=== PATIENT | male | born 1975 | race Hispanic/Latino ===

== ENCOUNTER 2018-09-26 11:09 | Emergency (ER) | payer BC ==
[2018-09-26 11:10] VITALS: BMI 24.0
[2018-09-26 11:32] VITALS: BP 156/95; PULSE 66; RESP 19; TEMP 98.5; O2SAT 97
[2018-09-26] MEDS ORDERED: TDAP Vaccine 0.5 mL Syr IM ONE (11:45)
--- NOTE | 2018-09-26 12:19 | ED PDOC ---
Arrival/HPI - General Chief Complaint: Bite Time Seen by Provider: 09/26/18 11:12 Historian: Patient - History of Present Illness Narrative History of Present Illness (Text): 09/26/18 12:16 A 43 year old male with no significant past medical history, presents to the ED status post getting bit by a cat on his right index finger. 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 Patient denies any allergy to medication but mentions previous adverse reaction to Augmentan, described as abdominal issues and discomfort. Patient denies any fevers or chills. PMD: Dr. Ahumada Time/Duration: Prior to Arrival Symptom Onset: Sudden Symptom Course: Unchanged Activities at Onset: Light Context: Work Past Medical History - Provider Review Nursing Documentation Reviewed: Yes - Infectious Disease Hx of Infectious Diseases: None - Cardiac Hx Cardiac Disorders: No - Pulmonary Hx Respiratory Disorders: No - Neurological Hx Neurological Disorder: No - HEENT Hx HEENT Disorder: No - Renal Hx Renal Disorder: No - Endocrine/Metabolic Hx Endocrine Disorders: No - Hematological/Oncological Hx Blood Disorders: No - Integumentary Hx Dermatological Disorder: No - Musculoskeletal/Rheumatological Hx Musculoskeletal Disorders: No - Gastrointestinal Hx Gastrointestinal Disorders: No - Genitourinary/Gynecological Hx Genitourinary Disorders: No - Psychiatric Hx Psychophysiologic Disorder: Yes Hx Anxiety: Yes Hx Substance Use: No Family/Social History - Physician Review Nursing Documentation Reviewed: Yes Family/Social History: No Known Family HX Smoking Status: Never Smoked Hx Alcohol Use: No Hx Substance Use: No Allergies/Home Meds Allergies/Adverse Reactions: Allergies No Known Allergies Allergy (Verified 01/07/15 12:23) Home Medications: Home Meds Medication Instructions Recorded Confirmed Alprazolam [Xanax] 0.5 mg PO PRN PRN 01/07/15 01/07/15 Review of Systems - Physician Review All systems were reviewed & negative as marked: Yes - Review of Systems Constitutional: absent: Fevers Skin: Other (Cat bite on right index finger.) Physical Exam Vital Signs Reviewed: Yes Vital Signs Temp Pulse Resp BP Pulse Ox 09/26/18 11:30 98.5 F 66 19 156/95 H 97 Temperature: Afebrile Blood Pressure: Normal Pulse: Regular Respiratory Rate: Normal Appearance: Positive for: Well-Appearing, Non-Toxic, Comfortable Pain Distress: None Mental Status: Positive for: Alert and Oriented X 3 - Systems Exam Head: Present: Atraumatic, Normocephalic Pupils: Present: PERRL Extroacular Muscles: Present: EOMI Conjunctiva: Present: Normal Upper Extremity: Present: NORMAL PULSES (Radial pulse intact.), Swelling (Mild swelling on right index finger. ), Capillary Refill < 2s, Other (Pt can extend and flex finger.). No: Erythema Neurological: Present: GCS=15, CN II-XII Intact, Speech Normal Skin: Present: Abrasion (Two 0.1 cm linear abrasions to right index finger. One towards PIP, other towards DIP.). No: Other (No purulence of right index finger.) Psychiatric: Present: Alert, Oriented x 3, Normal Insight, Normal Concentration Medical Decision Making ED Course and Treatment: 09/26/18 12:29 Impression: A 43 year old male who presents to the ED s/p cat bite. Plan: -- Doryx -- TDAP Vaccine -- Reassess and disposition Prior Visits: Notes and results from previous visits were reviewed. Patient was last seen in the emergency department on 01/07/15. Progress Notes: Discussed rabies vaccine with patient, who declines it at this time. Requested to check vaccination status of cat and will return if unvaccinated. - Medication Orders Current Medication Orders: Discontinued Medications Doxycycline Hyclate (Doryx) 100 mg PO STAT STA; Protocol Stop: 09/26/18 11:47 Last Admin: 09/26/18 11:56 Dose: 100 mg Tetanus/Reduced Diphtheria/Acell Pertussis (Boostrix Vaccine Inj) 0.5 ml IM .ONCE ONE Stop: 09/26/18 11:46 Last Admin: 09/26/18 11:56 Dose: 0.5 ml - Scribe Statement The provider has reviewed the documentation as recorded by the Nuris Pineda Provider Scribe Attestation: All medical record entries made by the Scribe were at my direction and personally dictated by me. I have reviewed the chart and agree that the record accurately reflects my personal performance of the history, physical exam, medical decision making, and the department course for this patient. I have also personally directed, reviewed, and agree with the discharge instructions and disposition. Disposition/Present on Arrival - Present on Arrival History of DVT/PE: No History of Uncontrolled Diabetes: No Urinary Catheter: No History of Decub. Ulcer: No History Surgical Site Infection Following: None - Disposition Diagnosis: Cat bite of finger Disposition: HOME/ ROUTINE Patient Problems: Current Active Problems Problem Status Onset Cat bite of finger Acute Condition: GUARDED Discharge Instructions (ExitCare): Animal Bites (DC) Print Language: QATARI Additional Instructions: All medical record entries made by the Jeannieibe were at my direction and personally dictated by me. I have reviewed the chart and agree that the record accurately reflects my personal performance of the history, physical exam, medical decision making, and the department course for this patient. I have also personally directed, reviewed, and agree with the discharge instructions and disposition. Please follow up with the vaccination status of the kitten and return to Emergency Room if rabies is a concern Please take antibiotics as prescribed Please monitor your finger for worsening swelling, redness, inability to flex or extend the finger, fevers and if noted, return to the Emergency Room. Prescriptions: Doxycycline Hyclate 100 mg PO BID 7 Days #14 cap Referrals: [facility] [Outside] - Follow up with primary Kimberli Perdomo MD [Medical Doctor] - Follow up with primary Forms: [employer] (Vietnamese)
== END 2018-09-26 11:59 | disposition home or self-care (01) ==
LOC: ED 11:09
DX: S61.250A Open bite of right index finger without damage to nail, initial encounter (principal); W55.01XA Bitten by cat, initial encounter; Y92.89 Other specified places as the place of occurrence of the external cause; Y99.0 Civilian activity done for income or pay; Z23 Encounter for immunization